=== PATIENT | male | born 1990 | race Hispanic/Latino ===

== ENCOUNTER 2022-08-15 11:12 | Inpatient (IN) | payer SELFPAY ==
[~2022-08-15] VITALS: Ht 167.6 cm; Wt 140.2 kg
[2022-08-15] MEDS ORDERED: ONDANSETRON HCL INJ 2MG/ML 2ML 2 MG/ML VIAL IV STA ×2 (12:07→14:29)
[2022-08-15] MEDS ORDERED: SODIUM CHLORIDE 0.9% 1000ML 1,000 ML IV STA ×2 (12:07→14:29)
[2022-08-15] MEDS ORDERED: FAMOTIDINE 20 MG/2 ML VIAL IV STA (12:07)
[2022-08-15] MEDS ORDERED: Morphine 4mg INJECTION 4 MG/ML INJ IV STA ×2 (12:07→14:29)
[2022-08-15] MEDS ORDERED: DONNATAL/LIDOCAINE/MAALOX 30 ML SUSP PO ONE (12:15)
[2022-08-15 13:00] LABS: BASOPHILS % 0.2 % (0.0-1.0); EOSINOPHILS # (AUTO) 0.1 (0.0-0.4); HEMATOCRIT 40.5 % (38.2-49.6); HEMOGLOBIN 13.3 g/dL (14.0-18.0); LYMPHOCYTES # (AUTO) 0.9 (1.0-3.2); LYMPHOCYTES % 7.7 % (18.0-39.1); MEAN CORPUSCULAR HEMOGLOBIN 30.3 pg (28-32); MEAN CORPUSCULAR HGB CONC 32.8 g/dL (31-35); MEAN CORPUSCULAR VOLUME 92.3 fL (81-99); MONOCYTES % 7.9 % (4.4-11.3); NEUTROPHILS % 82.8 % (38.7-80.0); PLATELET COUNT 235 x10e3/uL (140-360); RED BLOOD COUNT 4.39 x10e6/uL (4.3-5.7); RED CELL DISTRIBUTION WIDTH 11.9 % (11.7-14.4)
[2022-08-15 13:10] LABS: CLARITY,URINE CLEAR (CLEAR); COLOR,URINE YELLOW (YELLOW); LEUKOCYTE ESTERASE ,URINE NEGATIVE (NEGATIVE); NITRITE,URINE NEGATIVE (NEGATIVE); PROTEIN,URINE DIPSTICK TRACE (NEGATIVE)
[2022-08-15 13:11] LABS: KETONES,URINE NEGATIVE (NEGATIVE); URINE UROBILINOGEN 1 mg/dL (0.2 - 1)
[2022-08-15 13:20] LABS: ALBUMIN 3.7 g/dL (3.5-5.0); BACTERIA,URINE MODERATE /HPF; CALCIUM 8.7 mg/dL (8.4-10.2); CREATININE, SERUM 0.95 mg/dL (0.72-1.25); EPITHELIAL CELLS,URINE FEW /LPF; RBC,URINE 0-5 /HPF (0-5); WBC,URINE (MAN) 0-5 /HPF (0-5)
[2022-08-15 13:21] LABS: AMORPHOUS SEDIMENT,URINE FEW (FEW)
[2022-08-15] MEDS ORDERED: IOPAMIDOL 370 MG/ML 100 ML INFUS..BTL INJ ONE (13:36)
[2022-08-15 16:04] VITALS: PULSE 113; RESP 20; O2SAT 100
[2022-08-15] MEDS: SODIUM CHLORIDE 0.9% 1000ML 1,000 ML IV SCH (16:14)
[2022-08-15] MEDS ORDERED: ACETAMINOPHEN 325 MG TAB PO PRN (16:45)
[2022-08-15 17:10] VITALS: BP 133/84; PULSE 91; RESP 20; TEMP 100.6; O2SAT 100
[2022-08-15 20:00] VITALS: BP 124/76; PULSE 79; RESP 20; TEMP 98.8; O2SAT 100
[2022-08-15 21:00] VITALS: BP 124/76; PULSE 79; RESP 20; TEMP 98.8; O2SAT 100
[2022-08-15] MEDS: ONDANSETRON HCL INJ 2MG/ML 2ML 2 MG/ML VIAL IV PRN (21:21)
[2022-08-15] MEDS: Morphine 4mg INJECTION 4 MG/ML INJ IV PRN (21:22)
[2022-08-15 22:40] VITALS: PULSE 84; RESP 18; O2SAT 98
[2022-08-16] VITALS (9 sets, daily range): BP systolic 110–145; BP diastolic 51–83; PULSE 66–92; RESP 16–19; TEMP 98.1–99.3; O2SAT 97–100
[2022-08-16] MEDS: SODIUM CHLORIDE 0.9% 1000ML 1,000 ML IV SCH ×2 (00:42→08:23)
[2022-08-16] MEDS: ONDANSETRON HCL INJ 2MG/ML 2ML 2 MG/ML VIAL IV PRN ×2 (01:45→12:07)
[2022-08-16] MEDS: Morphine 4mg INJECTION 4 MG/ML INJ IV PRN ×2 (01:46→12:07)
[2022-08-16 05:41] LABS: BASOPHILS % 0.2 % (0.0-1.0); EOSINOPHILS # (AUTO) 0.1 (0.0-0.4); EOSINOPHILS % 1.3 % (0.0-6.0); HEMATOCRIT 34.6 % (38.2-49.6); HEMOGLOBIN 11.5 g/dL (14.0-18.0); LYMPHOCYTES # (AUTO) 0.8 (1.0-3.2); MEAN CORPUSCULAR HEMOGLOBIN 30.6 pg (28-32); MEAN CORPUSCULAR HGB CONC 33.2 g/dL (31-35); MONOCYTES # (AUTO) 0.9 (0.2-0.8); MONOCYTES % 10.6 % (4.4-11.3); NEUTROPHILS # (AUTO) 6.8 (2.1-6.9); NEUTROPHILS % 78.6 % (38.7-80.0); PLATELET COUNT 198 x10e3/uL (140-360); RED BLOOD COUNT 3.76 x10e6/uL (4.3-5.7); RED CELL DISTRIBUTION WIDTH 11.8 % (11.7-14.4)
[2022-08-16 06:09] LABS: ALBUMIN/GLOBULIN RATIO 0.9 (0.8-2.0); ANION GAP 12.6 mmol/L (8-16); CALCIUM 8.2 mg/dL (8.4-10.2); CREATININE, SERUM 0.98 mg/dL (0.72-1.25); POTASSIUM 3.6 mmol/L (3.5-5.1)
[2022-08-16] MEDS ORDERED: FENTANYL CITRATE/PF 100MCG/2 ML INJ ONE ×2 (11:43→15:28)
[2022-08-16] MEDS ORDERED: BUPIVACAINE HCL 0.5% INJ 30 ML VIAL INJ ONE (12:57)
[2022-08-16] MEDS ORDERED: LIDOCAINE HCL 2% LOCAL INJ 5 ML SDV VIAL INJ ONE (13:04)
[2022-08-16] MEDS ORDERED: POVIDONE IODINE 0.05% 0.05 % ML PO ONE (13:04)
[2022-08-16] MEDS ORDERED: NEOSTIGMINE 1 MG/ML 10ML VIAL ONE (13:04)
[2022-08-16] MEDS ORDERED: ONDANSETRON HCL INJ 2MG/ML 2ML 2 MG/ML VIAL ONE (13:04)
[2022-08-16] MEDS ORDERED: SEVOFLURANE INHAL SOLN 250 ML PEN BTL ONE (13:04)
[2022-08-16] MEDS ORDERED: PROPOFOL IV EMULSION 10 MG/ML 20 ML VIAL ONE (13:04)
[2022-08-16] MEDS ORDERED: DEXAMETHASONE SOD PHOS INJ 4 MG/ML SDV ONE (13:04)
[2022-08-16] MEDS ORDERED: GLYCOPYRROLATE INJ 0.2 MG/ML VIAL ONE (13:04)
[2022-08-16] MEDS ORDERED: ROCURONIUM BROMIDE 10 MG/ML 5ML VIAL IV ONE (13:04)
[2022-08-16] MEDS ORDERED: ACETAMINOPHEN 1000 MG/100 ML 100 ML IV ONE (14:15)
[2022-08-16] MEDS ORDERED: SODIUM CHLORIDE 0.9% 1000ML 1,000 ML IV SCH (15:00)
[2022-08-16] MEDS ORDERED: ONDANSETRON HCL INJ 2MG/ML 2ML 2 MG/ML VIAL IV PRN (15:00)
[2022-08-16] MEDS ORDERED: ACETAMINOPHEN 325 MG TAB PO PRN (15:00)
[2022-08-16] MEDS: HYDROCODONE/APAP 5MG-325MG TAB PO PRN (21:19)
[2022-08-17 01:03] VITALS: BP 128/83; PULSE 68; RESP 16; TEMP 98.5; O2SAT 97
[2022-08-17 04:47] VITALS: BP 123/58; PULSE 60; RESP 21; TEMP 98.1; O2SAT 99
[2022-08-17 07:31] VITALS: PULSE 66; PULSE 72; RESP 16; RESP 18; O2SAT 96; O2SAT 99
[2022-08-17 07:44] LABS: BASOPHILS % 0.2 % (0.0-1.0); EOSINOPHILS % 0.2 % (0.0-6.0); HEMATOCRIT 33.3 % (38.2-49.6); LYMPHOCYTES # (AUTO) 0.7 (1.0-3.2); LYMPHOCYTES % 7.2 % (18.0-39.1); MEAN CORPUSCULAR HEMOGLOBIN 30.3 pg (28-32); MEAN CORPUSCULAR VOLUME 91.7 fL (81-99); MONOCYTES # (AUTO) 0.6 (0.2-0.8); MONOCYTES % 5.8 % (4.4-11.3); NEUTROPHILS # (AUTO) 8.1 (2.1-6.9); NEUTROPHILS % 86.1 % (38.7-80.0); PLATELET COUNT 189 x10e3/uL (140-360); RED BLOOD COUNT 3.63 x10e6/uL (4.3-5.7); RED CELL DISTRIBUTION WIDTH 11.4 % (11.7-14.4)
[2022-08-17 08:00] VITALS: BP 121/86; PULSE 70; RESP 20; TEMP 98.1; O2SAT 100
[2022-08-17 08:11] LABS: ALBUMIN 2.9 g/dL (3.5-5.0); ALBUMIN/GLOBULIN RATIO 0.9 (0.8-2.0); ANION GAP 9.9 mmol/L (8-16); CALCIUM 8.5 mg/dL (8.4-10.2); CREATININE, SERUM 0.79 mg/dL (0.72-1.25); POTASSIUM 3.9 mmol/L (3.5-5.1)
[2022-08-17 08:49] VITALS: BP 121/86; PULSE 70; RESP 20; TEMP 98.1; O2SAT 100
[2022-08-17] MEDS: HYDROCODONE/APAP 5MG-325MG TAB PO PRN (11:58)
[2022-08-17 12:00] VITALS: BP 140/85; PULSE 77; RESP 21; TEMP 98.9; O2SAT 100
[2022-08-17] MEDS ORDERED: tylen (14:22)
[2022-08-17] MEDS ORDERED: tylenol #3 PO (14:24)
== END 2022-08-17 14:36 | disposition home or self-care (01) | DRG 419 ==
LOC: ER 11:23 → ERHOLD 14:48 → MED/SURG3 16:58
PROVIDERS: ADMIT Family Medicine; ATTEND Family Medicine
PROC: 0FT44ZZ Resection of Gallbladder, Percutaneous Endoscopic Approach (ICD-10-PCS; principal; 2022-08-16 13:41)
DX: K80.00 Calculus of gallbladder with acute cholecystitis without obstruction (principal)
CPT/HCPCS: 36415; 74177; 74181; 80053; 81001; 83605; 83690; 85025; 87040; 88304; 94799; 99284; J1100; J2001; J2270; J2405; J2543; J2710; J7030; Q9967